=== PATIENT | female | born 1995 | race Two or more races ===

== ENCOUNTER 2016-06-25 13:37 | Emergency (ER) | payer OTHER ==
[2016-06-25 13:40] LABS: URINE SOURCE CLEAN CATCH
[2016-06-25 14:04] LABS: URINE APPEARANCE CLEAR; URINE BILIRUBIN NEG (NEG); URINE BLOOD TRACE (NEG); URINE COLOR YELLOW; URINE GLUCOSE NEG (NEG); URINE KETONE NEG (NEG); URINE LEUKOCYTE ESTERASE 1+ (NEG); URINE NITRATE NEG (NEG); URINE PH 5.5 (5-8); URINE PROTEIN NEG (NEG); URINE UROBILINOGEN 0.2 MG/DL (NEG)
[2016-06-25 14:06] LABS: URBCS1 AUWI 0-2 /[HPF] (0-2); URINE BACTERIA AUWI NEG (NEGATIVE); URINE SQUAMOUS EPITHELIAL CELL OCC /[HPF]
[2016-06-25 14:14] LABS: CULTURE INDICATED? NO
[2016-07-01 20:39] LABS: CHLAMYDIA TRACH Not Detected (Not Detected); N GONOR Not Detected (Not Detected)
== END 2016-06-25 14:35 | disposition home or self-care (01) ==
LOC: CFTX 13:37
PROVIDERS: Nurse Practitioner
DX: A59.03 Trichomonal cystitis and urethritis (principal); N76.0 Acute vaginitis
CPT/HCPCS: 81003; 84703; 87491; 87591; 87808; 87905; 96372; 99284; J0696